=== PATIENT | male | born 1960 | race Caucasian/White ===

== ENCOUNTER 2024-05-09 06:22 | Day surgery (SDC) | payer OTHER, SELFPAY ==
[2024-05-09 10:06] LABS: Glucose - Point of Care 96 mg/dl (70-99)
== END 2024-05-09 11:30 | disposition home or self-care (01) ==
LOC: GI 06:22
PROVIDERS: ATTENDING PHYSICIAN Internal Medicine Gastroenterology
DX: Z12.11 Encounter for screening for malignant neoplasm of colon (principal); K64.8 Other hemorrhoids; D12.2 Benign neoplasm of ascending colon; K57.30 Diverticulosis of large intestine without perforation or abscess without bleeding; Z86.0100 Personal history of colon polyps, unspecified
CPT/HCPCS: 45385; 88305; 82962

== ENCOUNTER → 2025-02-06 07:44 | Outpatient (REF) | payer OTHER, SELFPAY | LOC: MRI 3T 07:44 | PROVIDERS: ATTENDING PHYSICIAN Specialist; FAMILY PHYSICIAN Physician Assistant Medical | DX: R97.20 Elevated prostate specific antigen [PSA] (principal) | CPT/HCPCS: 72197; A9575 ==

== ENCOUNTER 2025-03-05 06:36 | Day surgery (SDC) | payer OTHER, SELFPAY ==
[2025-03-05 08:21] VITALS: BP 136/87; BMI 25.9
[2025-03-05 08:31] LABS: Glucose - Point of Care 119 mg/dl (70-99)
[2025-03-05] MEDS: NEBCIN 480 MG/100 ML ENEMA 1 BOTTLE RECTAL (08:32)
[2025-03-05] MEDS: NORMOSOL-R/PLASMALYTE-A 1000 IV (08:32)
[2025-03-05 09:20] VITALS: BP 116/80
[2025-03-05 09:35] VITALS: BP 111/66
[2025-03-05 09:44] VITALS: BP 116/80
[2025-03-05 09:50] VITALS: BP 116/80
== END 2025-03-05 10:15 | disposition home or self-care (01) ==
LOC: SDS 06:36
PROVIDERS: ATTENDING PHYSICIAN Specialist
DX: N40.1 Benign prostatic hyperplasia with lower urinary tract symptoms (principal); R97.20 Elevated prostate specific antigen [PSA]; N41.1 Chronic prostatitis; N42.32 Atypical small acinar proliferation of prostate
CPT/HCPCS: 55700; 76998; 82962; 88305; 88344; 93005; J1580

== ENCOUNTER 2025-03-06 10:02 | Inpatient (IN) | payer OTHER, SELFPAY ==
[2025-03-05] VITALS (7 sets, daily range): BP systolic 105–120; BP diastolic 67–82; BMI 26.4
[2025-03-05 12:31] LABS: Hematocrit 37.2 % (39.0-52.0); Hemoglobin 12.7 g/dL (13.0-18.0); Mean Corp Hgb Conc. 34.1 g/dL (33.0-37.0); Mean Corpuscular Volume 85.3 fL (80.0-94.0); Nucleated Red Blood Cells % 0 % (-); Platelet Count 297 10^3/uL (130-400); Red Cell Dist. Width 12.9 % (11.5-14.5)
[2025-03-05 12:47] LABS: ALT (SGPT) 17 U/L (0-50); AST (SGOT) 15 U/L (17-59); Albumin 3.2 g/dl (3.5-5.0); Alkaline Phosphatase 50 U/L (38-126); Blood Urea Nitrogen 17 mg/dl (9-20); Calcium 8.3 mg/dl (8.4-10.2); Carbon Dioxide 28 mmol/L (22-30); Chloride 101 mmol/L (98-107); Estimated Creatinine Clearance 85 ml/min; Glucose 281 mg/dl (70-99); Potassium 4.3 mmol/L (3.5-5.1); Sodium 133 mmol/L (135-145); Total Protein 5.2 g/dl (6.3-8.2); eGFR > 60.00
--- NOTE | 2025-03-05 13:17 | ED.GENMED ---
History of Present Illness
General
Chief Complaint: Rectal Bleeding
Source: patient and spouse
Exam Limitations: none
Time Seen by Provider: 03/05/25 12:52
Nursing documentation reviewed up to this point in time: agreed with
History of Present Illness
History of Present Illness:
Note:
CHIEF COMPLAINT(S)
Passing out episodes and rectal bleeding.
HISTORY OF PRESENT ILLNESS
The patient is a 64-year-old male with a history of an enlarged prostate for 10-12 years, who presents with episodes of syncope and rectal bleeding. The patient reports that the episodes of bleeding began earlier today when he was at home. While
passing bowel movements, the patient noted a large amount of blood. He then experienced a syncopal episode, losing consciousness briefly while on the toilet. After regaining consciousness, the patient attempted to resume normal activities but noted
weakness and dizziness, prompting another trip to the bathroom where he had a second syncopal episode. There was no significant trauma reported, although the patient mentions his head did not sustain any noticeable injury during the falls.
The patient was previously diagnosed with benign prostatic hyperplasia and had a biopsy that came back benign. Recently, his PSA levels increased slightly, prompting further imaging which suggested an area of concern in the prostate, leading to a
second biopsy. The patient is currently being treated, and his prostate measures larger than average. Presently, the patient denies any pain or significant cramping before passing out, although he acknowledges feeling very weak.
After the syncopal episodes, the patient presented to the emergency department. Upon evaluation, the patients blood pressure and heart rate are within normal limits, and his hemoglobin level is stable. There is concern for further bleeding and the
potential for orthostatic hypotension or a vasovagal episode as the cause of syncope.
EXTERNAL RECORDS REVIEWED
The patient references prior biopsy results of his prostate, which were benign, and a recent MRI that indicated an area of interest prompting another biopsy.
CHRONIC MEDICAL CONDITIONS SIGNIFICANTLY AFFECTING CARE
The patient has a history of benign prostatic hyperplasia.
PLAN
The plan includes admitting the patient to the hospital for overnight observation to monitor for continued rectal bleeding and ensure stability. The patient will be evaluated by the urology and hospitalist teams to determine the cause of the
bleeding and syncope. Continuous monitoring of vital signs, including heart rate and blood pressure, is planned. The patient will also be observed for any cardiac rhythm abnormalities. Additional urologic consultation will be sought to address the
prostate concern and potential etiologies of the bleeding. Communication with the patients outpatient urologist has been initiated.
DIFFERENTIAL DIAGNOSIS
The Differential Diagnosis includes, in no particular order and is not limited to:
1. Gastrointestinal bleeding of unknown origin
2. Benign prostatic bleeding
3. Vasovagal syncope
4. Orthostatic hypotension
5. Anemia due to acute blood loss
6. Cardiac arrhythmia
7. Prostate cancer
8. Diverticulosis/diverticular bleeding
9. Upper gastrointestinal source of bleeding
10. Hemorrhoidal bleeding
PHYSICAL EXAM
The examination revealed an alert male in no acute distress. The skin was warm and dry. He had a normocephalic head with no trauma. There was neck suppleness, and the trachea was midline. The oral mucosa was moist. Cardiovascular assessment
indicated normal peripheral perfusion without edema present. Respiratory movements were non-labored. The abdomen was not distended. The back showed normal range of motion and normal alignment. Musculoskeletal assessment showed normal range of motion
and strength. Neurological exam indicated that the patient was alert and oriented to person, place, time, and situation without focal neurological deficits. Psychiatric evaluation demonstrated the patient was cooperative with an appropriate mood and
affect.
CARE-UPDATE
03/05/25 - 13:45
Patient stable and admitted for further monitoring. Urology has been informed of the situation. Uncertainty remains regarding the source of the rectal bleeding; however, it is more likely associated with the recent prostate biopsy rather than a
gastrointestinal issue.
EKG
My independent EKG interpretation is:
- Time of EKG: Not specified
- Rhythm: Normal sinus rhythm
- Heart Rate: 78 bpm
- [place]: Not specified
- ST Segment: No elevation or depression noted
- T Waves: Not specified
- Other Abnormalities: None mentioned
Disposition:
SUMMARY OF ENCOUNTER
The patient, a 64-year-old male with a history of benign prostatic hyperplasia, was seen in the emergency department due to episodes of syncope and significant rectal bleeding, which started earlier today during bowel movements. The patient
experienced two syncopal episodes, the first while on the toilet and the second when attempting to resume normal activities. On arrival, vitals were stable, and the patients hemoglobin level was stable. Given the recent prostate biopsy, there is
concern that the bleeding might be related, although gastrointestinal sources cannot be ruled out. The patient denies trauma, pain, or significant cramping prior to the syncopal events. The plan is to admit the patient for further monitoring and
evaluation.
ASSESSMENT
The differential diagnosis includes gastrointestinal bleeding of unknown origin, benign prostatic bleeding, vasovagal syncope, orthostatic hypotension, anemia due to acute blood loss, cardiac arrhythmia, prostate cancer, diverticulosis/diverticular
bleeding, upper gastrointestinal source of bleeding, and hemorrhoidal bleeding.
MANAGEMENT OF THE PATIENTS CARE WAS DISCUSSED WITH
Discussion with both the urology team, who were requested to evaluate the prostate-related concerns, and the hospitalist team, who will manage the progression of the patients care during admission.
PLAN
The plan involves admitting the patient to the hospital for overnight observation to monitor for continued rectal bleeding and to ensure stability. The urology and hospitalist teams will evaluate the patient to determine the cause of the bleeding
and syncope. Continuous monitoring of vital signs, including heart rate and blood pressure, will be conducted. Observations for any cardiac rhythm abnormalities will also continue. No immediate emergency interventions administrated are recorded at
this time. Communication with the patients outpatient urologist will be completed.
INDEPENDENT REVIEW OF LABS AND INTERPRETATION OF TESTS
- My independent EKG interpretation is: Normal sinus rhythm, heart rate of 78 bpm, no ST segment elevation or depression, and no other abnormalities noted.
MEDICAL DECISION MAKING
- Number and Complexity of Problems Addressed: Chronic conditions affecting care include benign prostatic hyperplasia and the recent prostate biopsy. The differential diagnosis remains broad, considering both prostate-related and gastrointestinal
sources for bleeding and syncope.
- Data:
Category 1: Integrated findings from the review of external records including prior biopsy results and recent MRI prompting a second biopsy.
Category 2: My independent interpretation of the EKG was normal and without abnormalities.
Category 3: Management of the patients situation discussed with both urology and hospitalist teams for a comprehensive plan.
- Risk: Given the episodes of syncope and rectal bleeding post-prostate biopsy, hospital admission was necessary for further monitoring and evaluation, indicating a moderate risk of complications from these symptoms.
DIAGNOSIS
- Syncope (ICD-10 R55)
- Rectal bleeding (ICD-10 K62.5)
- Benign prostatic hyperplasia (BPH) (ICD-10 N40.1)
Phy Exam
Physical Exam
Physical Exam:
.
Course
Orders/Labs/Results
Orders:
Orders
03/05/25 12:18
EKG [Electrocardiogram (*1)] Urgent
Reason for Study: Syncope
03/05/25 12:19
EKG- Treatment ONCE
03/05/25 12:23
Type+Screen Urgent
Complete Blood Count/With Diff Urgent
Comprehensive Metabolic Panel Urgent
Abnormal Lab Results
03/05/25
12:23
WBC 13.8 H 10^3/uL
(4.8-10.8)
RBC 4.36 L 10^6/uL
(4.70-6.10)
Hgb 12.7 L g/dL
(13.0-18.0)
Hct 37.2 L %
(39.0-52.0)
Abs Immat Gran (auto) 0.1 H 10^3/uL
(0-0.05)
Absolute Neuts (auto) 12.6 H 10^3/uL
(1.4-6.5)
Absolute Lymphs (auto) 0.8 L 10^3/uL
(1.2-3.4)
Immature Gran % 0.7 H %
(0-0.5)
Neutrophils % 91.7 H %
(42.2-75.2)
Lymphocytes % 5.7 L %
(20.5-51.1)
Monocytes % 1.5 L %
(1.7-9.3)
Sodium 133 L mmol/L
(135-145)
Glucose 281 H mg/dl
(70-99)
Calcium 8.3 L mg/dl
(8.4-10.2)
AST 15 L U/L
(17-59)
Total Protein 5.2 L g/dl
(6.3-8.2)
Albumin 3.2 L g/dl
(3.5-5.0)
03/05/25 12:23
03/05/25 12:23
Vital Signs
Initial and Last Documented VS:
Initial Vital Signs
Temp Pulse Pulse Ox
97.8 F 74 98
03/05/25 12:15 03/05/25 12:15 03/05/25 12:15
Last Documented Vital Signs
Temp Pulse Resp BP Pulse Ox
97.8 F 74 18 112/77 99
03/05/25 12:15 03/05/25 12:15 03/05/25 12:20 03/05/25 12:16 03/05/25 13:18
*Pulse Oximetry
SaO2: 99
Oxygen Mode of Delivery: Room air
Patient hypoxic: no
*Critical Care Note
Total Time (30-74mins, 75-104mins- exclusive of procedures): Not Applicable
ED Attending Note
-
Portions of this chart may have been created with voice recognition software.� Occasional wrong word or��sound alike� substitutions may have occurred due to the inherent limitations of voice recognition software.
Discharge Plan
Departure
Patient Disposition: Admit
Date of Disposition: 03/05/25
Time of Disposition: 13:18
Admit to: Telemetry
Presentation/result/management discussed w/ accepting MD/DO: Hospitalist
Patient with high blood pressure during this ER visit?: No
Condition: Fair
Discharge Problem:
Rectal bleeding, Syncope
Prescriptions:
No Action
metformin 500 mg Tablet
500 mg PO DAILY
losartan 25 mg Tablet
25 mg PO DAILY
finasteride 5 mg Tablet
5 mg PO DAILY
omeprazole 20 mg Tablet,Delayed Release (Dr/Ec)
20 mg PO DAILY
cefdinir 300 mg Capsule
300 mg PO BID
Rx Instructions:
for 3 days starting 03/04/25
metformin 500 mg Tablet
1,000 mg PO QPM
Referrals:
Rosetta Bhatia PA-C [Family Provider, Family Practice]
Interventions
Interventions:
*Risk Screen - Suicide Last Done: 03/05/25 12:17
*General Assessment Last Done: 03/05/25 12:19
*Neglect/Abuse Screening Last Done: 03/05/25 12:17
*ED- Fall Risk Assessment Last Done: 03/05/25 12:18
*ED COVID-19 Vaccine History Last Done: 03/05/25 12:18
*ED Influenza Vaccine History Last Done: 03/05/25 12:18
PJ-Umpmao-Knaeioqabx Assessment Last Done: 03/05/25 12:20
ED- Cardiac Assessment Last Done: 03/05/25 12:20
ED- Pulmonary Assessment Last Done: 03/05/25 12:20
Discharge Date and Time
Print Language: LUXEMBOURGER
--- NOTE | 2025-03-05 14:02 | HPS.HSE ---
Family Physician
-
Family Physician: Rosetta Bhatia
Chief Complaint
-
rectal bleeding
History of Present Illness
64-year-old male past medical history of BPH, chronic constipation, colonic polyps, hiatal hernia, obstructive sleep apnea, GERD, hypertension, diabetes, presenting with multiple episodes of loose rectal bleeding and 2 episodes of passing out today
after prostate biopsy in the morning. He does not take any blood thinners.
He underwent prostate biopsy by Dr. Mcdonough today for mass seen on prostate on prior MRI. He has not urinated after the procedure yet. He was noted to have blood pressure in the 80s afterwards with some dizziness but currently denies any symptoms.
No fever or abdominal pain.
He denies smoking or alcohol use.
Medical History
Past Medical History
Past Medical History: Reports Other (BPH, chronic constipation, colonic polyps, hiatal hernia, obstructive sleep apnea, GERD, hypertension, diabetes)
Past Surgical History: Reports None
Social History
Tobacco: Non-smoker
Alcohol: None
Drug: None
Family History
Family History: Not pertinent
Allergies / Home Medications
Allergies reflects when Allergies were last updated in [facility].
Home Medications with original date entered in [facility]
Allergy/Medication List:
Allergies
Allergy/AdvReac Type Severity Reaction Status Date / Time
No Known Allergies Allergy Verified 03/05/25 08:17
Home Medications
finasteride 5 mg tablet 5 mg PO DAILY Urinary Issue 03/02/25
losartan 25 mg tablet 25 mg PO DAILY Blood Pressure 03/02/25
metformin 500 mg tablet 500 mg PO DAILY Diabetes 03/02/25
omeprazole 20 mg tablet,delayed release 20 mg PO DAILY Gastrointestinal Issue 03/02/25
cefdinir 300 mg capsule 300 mg PO BID 03/05/25
metformin 500 mg tablet 1,000 mg PO QPM Diabetes 03/05/25
Review of Systems
-
History Source: Patient
A 12 point ROS was completed and negative except as noted: Yes
Constitutional: Reports No Symptoms
EENT: Reports No Symptoms
Respiratory: Reports No Symptoms
Cardiac: Reports No Symptoms
Abdomen/GI: Reports See HPI
: Reports See HPI
Musculoskeletal: Reports No Symptoms
Skin: Reports No Symptoms
Neurological: Reports No Symptoms
Endocrine: Reports No Symptoms
Hematologic/Lymphatic: Reports No Symptoms
Psych: Reports No Symptoms
Physical Exam
Vital Signs
Vital Signs
Temp Pulse Resp BP Pulse Ox
97.8 F 74 18 112/77 99
03/05/25 12:15 03/05/25 12:15 03/05/25 12:20 03/05/25 12:16 03/05/25 13:18
Physical Exam
General: Well Developed, Well Nourished and No Apparent Distress
HEENT: NormoCephalic, Moist mucous membranes and Atraumatic
Respiratory: Clear
Cardiac: S1/S2 and Regular Rhythm; No Murmur or Rub
GI: Soft, Non Tender, Non Distended and Normal Bowel Sounds; No Organomegaly
Rectal: Deferred by Provider
Musculoskeletal: No Clubbing, No Cyanosis and No Edema
Skin: No Rash
Neuro: Nonfocal/grossly intact
Laboratory Results
-
03/05/25 12:23
03/05/25 12:23
Laboratory Results
Total Bilirubin 0.7 mg/dl (0.2-1.3) 03/05/25 12:23
AST 15 U/L (17-59) L 03/05/25 12:23
ALT 17 U/L (0-50) 03/05/25 12:23
Alkaline Phosphatase 50 U/L (38-126) 03/05/25 12:23
Impression/Plan
-
IMPRESSION:
PLAN:
# Rectal bleeding after prostate biopsy today
# Syncopal episode secondary to blood loss
- Hemoglobin of 12.7
- Hold losartan for now
-Continue cefdinir that was started yesterday preprocedure
- Urology consulted
# Hyperglycemia
# Type 2 diabetes
- Blood sugar 280
- Hold metformin
- Insulin sliding scale
- Check A1c
BPH/prostate mass
- Continue finasteride
Chronic constipation
Colonic polyp
Hiatal hernia
Obstructive sleep apnea
GERD
- Continue omeprazole
Essential hypertension
Full code
DVT prophylaxis�SCDs
N.p.o.
--- NOTE | 2025-03-05 14:15 | CM ---
Chart reviewed and OBS form explained with patient and at ED bedside
Lives with in a split home no [address] but [address]
Independent with ADLS, ambulation . 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
DME none
PCP Rosetta Bhatia
RX plan yes
Ph[facility]acy [facility] in [place]
no hx of VN nor SNF
DCP is to go home and can provide transportation
CM will continue to follow up for dcp needs
--- NOTE | 2025-03-05 16:03 | CONS.URO ---
Consultation
-
Date/Time Consultation Performed: 03/05/25, 2:00PM
Performing Provider: Supa
Medical History
History of Present Illness
64-year-old male past medical history of BPH (110g), elevated PSA and PIRADS 5 lesion on MRI presenting with multiple episodes of loose rectal bleeding and 2 episodes of passing out today after prostate biopsy this morning. He does not take any
blood thinners.
He underwent prostate biopsy by Dr. Mcdonough today for mass seen on prostate on prior MRI. He was noted to have blood pressure in the 80s afterwards with some dizziness at home with 2 large bloody bowel movements but currently denies any symptoms.
No light-headedness or dizziness. No fever or abdominal pain.
In the ER, AFVSS. Hgb 12.7 from 13.9.
Allergies/Home Medications
Allergies
Allergy/AdvReac Type Severity Reaction Status Date / Time
No Known Allergies Allergy Verified 03/05/25 08:17
Home Medications
�Medication �Instructions �Recorded �Confirmed �Type
finasteride 5 mg tablet 5 mg PO DAILY Urinary Issue 03/02/25 03/05/25 History
losartan 25 mg tablet 25 mg PO DAILY Blood Pressure 03/02/25 03/05/25 History
metformin 500 mg tablet 500 mg PO DAILY Diabetes 03/02/25 03/05/25 History
omeprazole 20 mg tablet,delayed 20 mg PO DAILY Gastrointestinal 03/02/25 03/05/25 History
release Issue
cefdinir 300 mg capsule 300 mg PO BID 03/05/25 03/05/25 History
metformin 500 mg tablet 1,000 mg PO QPM Diabetes 03/05/25 03/05/25 History
Physical Exam
Vital Signs
Vital Signs
Temp Pulse Resp BP Pulse Ox
98 F 87 18 120/78 99
03/05/25 15:06 03/05/25 15:06 03/05/25 15:06 03/05/25 15:06 03/05/25 15:06
Lab / Testing Results
Laboratory Results
03/05/25 12:23
Physical Exam
General: Well Developed, Well Nourished and No Apparent Distress
HEENT: Normocephalic
GI: Soft and Non Tender
Skin: Warm and Dry
Neuro: Awake and Alert
Assessment / Plan
-
64-year-old male past medical history of BPH (110g), elevated PSA and PIRADS 5 lesion on MRI presenting with multiple episodes of loose rectal bleeding and 2 episodes of passing out today after prostate biopsy this morning. He does not take any
blood thinners.
Plan:
- Admit for obs
- Trend Hgb
- Monitor vital signs and subsequent BMs
- Pt needs to urinate post-procedure - please bladder scan if pt has not voided
- Conservative management
- Urology to follow
[2025-03-05 16:19] LABS: Hematocrit 38.8 % (39.0-52.0); Hemoglobin 13.5 g/dL (13.0-18.0)
--- NOTE | 2025-03-05 16:30 | PTCARENOTE ---
Pt admitted into room 405-1, ambulated from wheelchair to bathroom to bed with [id number]. VSS. Tele showing NSR. Pt AAOx3, denies pain. Call gabriel within reach. Oriented patient to room.
[2025-03-05 18:06] LABS: Glucose - Point of Care 149 mg/dl (70-99)
--- NOTE | 2025-03-05 18:41 | PTCARENOTE ---
Upon ambulation to bathroom HR increased to 140's. Pt denies dizziness, or palpitations. BP 105/76 upon return to bed and HR quickly returned to 80-90's NSR. Dr. Elder made aware. No BM's or further bleeding since arrival to floor.
[2025-03-05] MEDS: OMNICEF 300 MG PO (20:07)
--- NOTE | 2025-03-05 21:16 | W.PN.UPDATE ---
Addendum entered and electronically signed by RICHMOND Flores 03/06/25 07:06:
Failed straight cath attempt x1. Patient voided 200 ml, PVR 234 ml.
Urologist made aware.
Original Note:
Update Note
Progress Note Update
RN reports patient HR 120's -140's when patient walks to the BR, HR 90's when in bed resting. Patient seen and evaluated. states he feels his HR went up while he was urinating. He feels 'burning' at the midchest at that time. Timothy chest pain or
shortness of breath. Denies dizziness lightheaded. lungs clear, RRR, +BS. VS Stable.
Hx of GERD, Family Hx of heart attack
EKG, Troponin, Protonix 40mg IVx1
EKG results noted. Admitting made aware.
Also noted PVR of 380 after voiding 200 CC. clear urine.
will order bladder scan. Patient refusing to be straight cath at this time.
[2025-03-05 22:36] LABS: Hematocrit 35.4 % (39.0-52.0); Hemoglobin 12.1 g/dL (13.0-18.0)
[2025-03-05] MEDS: NSS (PRESERVATIVE FREE) 10 ML IV (22:46)
[2025-03-05] MEDS: PROTONIX IV 40 MG IV (22:47)
[2025-03-05 23:14] LABS: Troponin I < 0.012 ng/ml
[2025-03-05 23:57] LABS: Glucose - Point of Care 124 mg/dl (70-99)
[2025-03-06 03:23] VITALS: BP 135/77
--- NOTE | 2025-03-06 05:27 | PTCARENOTE ---
Pt aaox3 able to make his needs known.Denies pain. Pt sinus tachy in 140's when trying to void or ambulating in BR & back to 90 when back in bed,pt stated he felt it,denies chest pain.[employer] par[employer] chaperone made aware of it & seen pt,EKG done on pt & troponin
sent, hgb was checked again.Pt asymptomatic otherwise.SUPPLY ROOM CLERK was made aware of pt bladder scan results.Plan of care continued as ordered.
[2025-03-06 06:36] LABS: Glucose - Point of Care 122 mg/dl (70-99)
[2025-03-06 07:00] VITALS: BP 134/77
[2025-03-06 07:33] LABS: Hematocrit 34.9 % (39.0-52.0); Hemoglobin 11.6 g/dL (13.0-18.0); Mean Corp Hgb Conc. 33.2 g/dL (33.0-37.0); Mean Corpuscular Volume 86.4 fL (80.0-94.0); Nucleated Red Blood Cells % 0 % (-); Platelet Count 265 10^3/uL (130-400); Red Cell Dist. Width 12.8 % (11.5-14.5)
[2025-03-06 07:54] LABS: ALT (SGPT) 16 U/L (0-50); AST (SGOT) 16 U/L (17-59); Albumin 3.4 g/dl (3.5-5.0); Alkaline Phosphatase 47 U/L (38-126); Blood Urea Nitrogen 11 mg/dl (9-20); Calcium 8.6 mg/dl (8.4-10.2); Carbon Dioxide 29 mmol/L (22-30); Chloride 102 mmol/L (98-107); Estimated Creatinine Clearance 85 ml/min; Glucose 133 mg/dl (70-99); Potassium 3.9 mmol/L (3.5-5.1); Sodium 135 mmol/L (135-145); Total Protein 5.3 g/dl (6.3-8.2); eGFR > 60.00
--- NOTE | 2025-03-06 08:10 | W.PN.HOSP.TC ---
Today's Communication/Plan
-
No rectal or urinary bleeding since admission. Will continue to monitor.
Blood pressure increasing and stable in 130s.
Urology started prophylactic levofloxacin 500 mg p.o. daily. Changed level of care from observation to inpatient.
Assessment / Plan
Assessment / Plan
IMPRESSION:
Mr. Mian Judd is a 64-year-old male with PMH notable for BPH, chronic constipation, colonic polyps, hiatal hernia, obstructive sleep apnea, GERD, hypertension, diabetes, presenting with multiple episodes of loose rectal bleeding and 2 episodes
of passing out today after prostate biopsy in the morning. He does not take any blood thinners.
He underwent prostate biopsy by Dr. Mcdonough today for mass seen on prostate on prior MRI. He has not urinated after the procedure yet. He was noted to have blood pressure in the 80s afterwards with some dizziness but currently denies any symptoms.
No fever or abdominal pain.
He denies smoking or alcohol use.
PLAN:
# Rectal bleeding after prostate biopsy
# Syncopal episode secondary to blood loss
# Essential hypertension at baseline
No double or urinary bleeding since admission
- Hemoglobin of 12.7
- Hold losartan 25 mg p.o. daily due to softer blood pressures. Anticipating resuming soon since blood pressures have increased to 130s
- Continue cefdinir 30 mg p.o. twice daily that was started preprocedure (1 day prior to admission) prophylactically, since the patient developed an infection after a prostate biopsy 12 years ago
- Urology consulted: Started levofloxacin 500 mg p.o. daily 03/06/25�
# Hyperglycemia
# Type 2 diabetes
A1c 5.8% prediabetes
- Holding metformin 500 milligram a.m. and 1000 mg p.m. p.o. daily in case imaging is desired. Anticipate resuming soon
- Insulin sliding scale
BPH/prostate mass
- Continue finasteride 5 mg p.o. daily
After an elevated PVR, straight cath was unsuccessful
- Patient reported that a urologist recommended refraining from Alvares catheter or straight catheter for urinary retention
� Patient reports that his prostate is 100 g (whereas normal prostates are 30 g). He is used to urinating every 2 hours at night.
Chronic constipation
�Denies constipation recently. Holding off on providing a bowel regimen to promote hemostasis at the prostate biopsy site
Colonic polyp
Hiatal hernia
Obstructive sleep apnea
� CPAP offered and patient declined, feeling like he did not need it for the anticipated few-nights stay
GERD
- Pantoprazole 40 mg p.o. daily (at home, on omeprazole 20 mg p.o. daily)
Full code
DVT prophylaxis�SCDs
N.p.o.
Anticipated Discharge: 24 - 48 hours
Subjective/Interval History
-
Date of Service: March 06, 2025
Overnight at 9 PM:
RN reports patient HR 120's -140's when patient walks to the BR, HR 90's when in bed resting. Patient seen and evaluated. states he feels his HR went up while he was urinating. He feels 'burning' at the midchest at that time. Timothy chest pain or
shortness of breath. Denies dizziness lightheaded. lungs clear, RRR, +BS. VS Stable.
Hx of GERD, Family Hx of heart attack
EKG, Troponin, Protonix 40mg IVx1
EKG results noted. Admitting made aware.
Also noted PVR of 380 after voiding 200 CC. clear urine.
will order bladder scan. Patient refusing to be straight cath at this time.
This morning at 7 AM:
Failed straight cath attempt x1. Patient voided 200 ml, PVR 234 ml.
Urologist made aware.
Troponin undetectable. EKG with normal sinus rhythm.
This morning, patient was comfortable and had no complaints. He has had no further bowel movements. Since admission, he has noted no blood in his urine, he has urinated multiple times. He denies feeling lightheaded.
He clarified the mid chest pain he felt later this morning had resolved and did not feel like retrosternal chest pain.
Objective Data
-
Labs:
Laboratory Results
03/05/25 03/06/25
22:30 07:14
WBC 8.8
Hgb 12.1 L 11.6 L
Hct 35.4 L 34.9 L
Plt Count 265
Sodium 135
Potassium 3.9
Chloride 102
Carbon Dioxide 29
BUN 11
Creatinine 0.8
Glucose 133 H
Calcium 8.6
Total Bilirubin 0.9
AST 16 L
ALT 16
Alkaline Phosphatase 47
Vital Signs:
Vital Signs
Temp Pulse Resp BP Pulse Ox
98.4 F 89 12 134/77 97
03/06/25 07:00 03/06/25 07:00 03/06/25 07:00 03/06/25 07:00 03/06/25 07:00
I&O
03/05/25 03/06/25 03/07/25
06:59 06:59 06:59
Intake Total 800 / 800
Output Total 500 / 500
Balance 300 / 300
Review of Systems
-
History Source: Patient
All other systems: Reviewed and negative
Physical Exam
-
General: Well Developed, Well Nourished, No Apparent Distress, Comfortable and Conversant
HEENT: Normocephalic, Atraumatic, Moist Mucous Membranes, Anicteric, No Ptosis, Nose Appears Normal and Ears Appear Normal
Respiratory: Clear to Auscultation
Cardiac: Regular Rhythm and S1/S2
GI: Soft, Nontender, Nondistended and Normal Bowel Sounds
Musculoskeletal: No Clubbing, No Cyanosis and No Edema
Skin: Warm, Dry and Normal Turgor
Neuro: Awake and Alert
Psych: Calm
[2025-03-06 09:07] LABS: Glucose - Point of Care 142 mg/dl (70-99)
[2025-03-06] MEDS: OMNICEF 300 MG PO ×2 (09:20→20:48)
[2025-03-06] MEDS: LEVAQUIN 500 MG PO (09:20)
[2025-03-06] MEDS: PROSCAR 5 MG PO (09:21)
[2025-03-06] MEDS: PROTONIX 40 MG PO (09:21)
[2025-03-06 09:52] LABS: Glycohemoglobin (HgbA1c) 5.8 % (4.0-5.9)
[2025-03-06 10:00] LABS: Hepatitis C Antibody Negative (Negative)
--- NOTE | 2025-03-06 10:03 | W.PN.UPDATE ---
Update Note
Progress Note Update
I saw and evaluated the patient. I reviewed the resident�s note and agree with findings and plan as documented in the resident�s note.
No new complaints.
Gen: NAD, AAOx3.
Eyes: EOMI, PERRLA, no scleral icterus.
Neck: supple.
CV: RRR, +S1/S2, no m/r/g.
Resp: CTAB, no rales, wheezes, or rhonchi.
Abd: +BS, soft, NT, ND
Skin: No rashes.
Neuro: CN 2-12 intact, non-focal.
Psych: Normal mood and affect.
Acute blood loss anemia due to rectal bleeding:
-started after prostate Bx (prostate mass) on day of admission
-had a syncopal episode due to acute blood loss
-trend Hb
-case discussed with Dr. Mcdonough. No indication for red catheter at this time. Cont abx as per Dr. Mcdonough for prostatitis prophylaxis. I personally clarified with Dr. Mcdonough that cefdinir alone is fine (he had ordered Levaquin but did not
realize the patient was already on cefdinir). Dr. Mcdonough would like to watch the pt in the hospital for one more day.
Other problems:
DM2: a1c 5.8%, SSI/accuchecks
h/o BPH: cont finasteride
Chronic constipation
Colonic polyp
Hiatal hernia
SALIMA
GERD: cont PPI
FULL/SCDs
[2025-03-06 11:00] VITALS: BP 138/72
--- NOTE | 2025-03-06 11:39 | CM ---
Reviewed Chart. Met with pt and at bedside. Planning for DC tomorrow. Pt informed that he is now on inpatient status; was admitted on OBS.
Plan: home with no needs
[2025-03-06 11:49] LABS: Glucose - Point of Care 234 mg/dl (70-99)
[2025-03-06] MEDS: NOVOLOG FLEXPEN-LOW RESISTANCE 2 UNITS SC (12:15)
--- NOTE | 2025-03-06 12:35 | W.PN.URO.CBU ---
Today's Communication / Plan
-
no changes
Assessment / Plan
-
pt had multiple reasons including anesthesia rectal and urinary bleeding vasov aga rxn and dehydration leading to yesterdays event . Today c/o dysuria and mild frequency of urine 200cc pvr but difficult red .... hgb 13 to 11.6 no
major ongoing active bleeding will observe a pt at risk for uti , and retention and observeas hgb still slowly drifting down will consider red but this also carries possible uti risk. plan cefdinir serial hgb observe for sepsis and
retention
Diagnosis
-
Date of Service: March 06, 2025
-
Patient Diagnosis:
post op transrectal bx prostate with post op syncope, rectal bleeding partial retention
Post Op Day:
Subjective
-
dysuria otherwise feels basline
Objective
-
Vital Signs
Temp Pulse Resp BP Pulse Ox
97.9 F 97 12 138/72 98
03/06/25 11:00 03/06/25 11:00 03/06/25 11:00 03/06/25 11:00 03/06/25 11:00
Intake and Output
03/05/25 03/06/25 03/07/25
06:59 06:59 06:59
Intake Total 800 / 800
Output Total 500 / 500
Balance 300 / 300
Intake:
Oral fluids 800 / 800
Output:
Urine, Voided 500 / 500
Straight cath output 0 / 0
Other:
Number of approximated MODERATE 2
amounts of urine
Laboratory Results
03/06/25 07:14
03/06/25 07:14
Review of Systems
-
Abdomen/GI: Other (blod diinshing from rctum)
: Frequency and Difficulty Voiding
Physical Exam
-
General - well developed, well nourished, no acute distress
Chest - clear bilaterally
Abdomen - soft, non-tender, positive bowel sounds, no CVAT, no incisional pain or distention
Genitalia - normal
Rectal - normal
Skin - warm & dry with no rash
Neuro - AOx3, no motor deficits
Extremities - no clubbing, no cyanosis, no edema
Incision - clean, dry
Dressing - clean, dry, intact
Counseling
-
no changes
Care Review
Data Reviewed
Discussed with: Nursing and Family
[2025-03-06 15:00] VITALS: BP 122/76
[2025-03-06 16:32] LABS: Glucose - Point of Care 113 mg/dl (70-99)
[2025-03-06] MEDS: NOVOLOG FLEXPEN-LOW RESISTANCE SC (16:43)
[2025-03-06 19:41] VITALS: BP 136/77
[2025-03-06 21:07] LABS: Glucose - Point of Care 216 mg/dl (70-99)
[2025-03-06 23:39] VITALS: BP 138/83
[2025-03-07 03:41] VITALS: BP 115/81
[2025-03-07 06:30] LABS: Hematocrit 33.5 % (39.0-52.0); Hemoglobin 11.2 g/dL (13.0-18.0); Mean Corp Hgb Conc. 33.4 g/dL (33.0-37.0); Mean Corpuscular Volume 89.1 fL (80.0-94.0); Platelet Count 245 10^3/uL (130-400); Red Cell Dist. Width 12.9 % (11.5-14.5)
[2025-03-07 06:57] LABS: Glucose - Point of Care 147 mg/dl (70-99)
[2025-03-07 07:00] VITALS: BP 117/71
[2025-03-07 07:02] LABS: Blood Urea Nitrogen 13 mg/dl (9-20); Calcium 8.5 mg/dl (8.4-10.2); Carbon Dioxide 30 mmol/L (22-30); Chloride 103 mmol/L (98-107); Estimated Creatinine Clearance 75 ml/min; Glucose 125 mg/dl (70-99); Potassium 4.2 mmol/L (3.5-5.1); Sodium 137 mmol/L (135-145); eGFR > 60.00
[2025-03-07] MEDS: NOVOLOG FLEXPEN-LOW RESISTANCE SC ×2 (08:27→11:47)
--- NOTE | 2025-03-07 08:37 | W.PN.HOSP.TC ---
Today's Communication/Plan
-
Discharge today with directions to complete previously prescribed prostatitis prophylaxis antibiotic course by patient urologist.
Provided mag citrate for constipation.
Assessment / Plan
Assessment / Plan
IMPRESSION:
Mr. Mian Judd is a 64-year-old male with PMH notable for BPH, chronic constipation, colonic polyps, hiatal hernia, obstructive sleep apnea, GERD, hypertension, diabetes, presenting with multiple episodes of loose rectal bleeding and 2 episodes
of passing out today after prostate biopsy in the morning. He does not take any blood thinners.
He underwent prostate biopsy by Dr. Mcdonough on the day of presentation for mass seen on prostate on prior MRI. He has not urinated after the procedure yet. He was noted to have blood pressure in the 80s afterwards with some dizziness but
currently denies any symptoms.
PLAN:
# Rectal bleeding after prostate biopsy
# Syncopal episode secondary to blood loss
# Essential hypertension at baseline
No rectal or urinary bleeding since admission. Hemoglobin stable 11-12
- Hold losartan 25 mg p.o. daily due to softer blood pressures. Anticipating discharging on losartan since blood pressures have been stable 110s to 130s
- Continue cefdinir 30 mg p.o. twice daily that was started preprocedure (1 day prior to admission) prophylactically, since the patient developed an infection after a prostate biopsy 12 years ago
- Urology consulted: cefdinir while hospitalized. Advised patient to finish remaining 2 tablets of cefdinir at home after discharge
# Hyperglycemia
# Type 2 diabetes
A1c 5.8% prediabetes
- Resumed metformin 500 milligram a.m. and 1000 mg p.m. p.o. daily
- Insulin sliding scale
BPH/prostate mass
- Continue finasteride 5 mg p.o. daily
After an elevated PVR, straight cath was unsuccessful
- Patient reported that a urologist recommended refraining from Alvares catheter or straight catheter for urinary retention
� Patient reports that his prostate is 100 g (whereas normal prostates are 30 g). He is used to urinating every 2 hours at night.
Chronic constipation
�Denies constipation recently. Holding off on providing a bowel regimen to promote hemostasis at the prostate biopsy site
Colonic polyp
Hiatal hernia
Obstructive sleep apnea
� CPAP offered and patient declined, feeling like he did not need it for the anticipated few-nights stay
GERD
- Pantoprazole 40 mg p.o. daily (at home, on omeprazole 20 mg p.o. daily)
Full code
DVT prophylaxis�SCDs
N.p.o.
Anticipated Discharge: Today
Subjective/Interval History
-
Date of Service: March 07, 2025
No acute events overnight. This morning, patient was found walking around the unit without assistance comfortably. Patient denied having bowel movement yet. He denies feeling lightheaded. He only experienced tachycardia 1 more time while
urinating, but not other times while urinating.
Objective Data
-
Labs:
Laboratory Results
03/07/25
05:38
WBC 6.2
Hgb 11.2 L
Hct 33.5 L
Plt Count 245
Sodium 137
Potassium 4.2
Chloride 103
Carbon Dioxide 30
BUN 13
Creatinine 0.9
Glucose 125 H
Calcium 8.5
Vital Signs:
Vital Signs
Temp Pulse Resp BP Pulse Ox
97.8 F 78 12 117/71 97
03/07/25 07:00 03/07/25 07:00 03/07/25 07:00 03/07/25 07:00 03/07/25 07:00
I&O
03/06/25 03/07/25 03/08/25
06:59 06:59 06:59
Intake Total 800 / 800 840 / 840
Output Total 500 / 500 250 / 250
Balance 300 / 300 590 / 590
Review of Systems
-
History Source: Patient
All other systems: Reviewed and negative
Physical Exam
-
General: Well Developed, Well Nourished, No Apparent Distress, Comfortable and Conversant
HEENT: Normocephalic, Atraumatic, Anicteric, No Ptosis, Nose Appears Normal and Ears Appear Normal
Respiratory: Clear to Auscultation
Cardiac: Regular Rhythm and S1/S2
GI: Soft, Nontender, Nondistended and Normal Bowel Sounds
Musculoskeletal: No Clubbing, No Cyanosis and No Edema
Skin: Warm and Dry
Neuro: Awake and Alert
Psych: Calm
[2025-03-07] MEDS: GLUCOPHAGE 500 MG PO (09:03)
[2025-03-07] MEDS: FLUSH (NSS) 1 FLUSH IV (09:04)
[2025-03-07] MEDS: OMNICEF 300 MG PO (09:04)
[2025-03-07] MEDS: PROSCAR 5 MG PO (09:04)
[2025-03-07] MEDS: PROTONIX 40 MG PO (09:04)
--- NOTE | 2025-03-07 10:30 | PTCARENOTE ---
Noted this am when pt up to the bathroom that his HR was up to 120s-130s, asymptomatic. Once at rest, HR 70s-80s, Sinus Rhythm. Pt states that he feels like he strains when he urinates, slight dysuria. Pt states that he feels like he voids
adequately. Will check bladder scan PVR with next void. Dr. Mjeia aware of above.
--- NOTE | 2025-03-07 10:33 | W.PN.UPDATE ---
Update Note
Progress Note Update
I saw and evaluated the patient. I reviewed the resident�s note and agree with findings and plan as documented in the resident�s note.
No new complaints. Denies blood per rectum since I saw the patient yesterday.
Gen: NAD, AAOx3.
Eyes: EOMI, PERRLA, no scleral icterus.
Neck: supple.
CV: Remains RRR, +S1/S2, no m/r/g.
Resp: Remain CTAB, no rales, wheezes, or rhonchi.
Abd: Remains +BS, soft, NT, ND
Skin: No rashes.
Neuro: CN 2-12 intact, non-focal.
Psych: Normal mood and affect.
Acute blood loss anemia due to rectal bleeding:
-started after prostate Bx (prostate mass) on day of admission
-had a syncopal episode due to acute blood loss
-Tele with SR/ST (read by me)
-Hb stable
-d/c on abx (pt has at home) as per discussion with Uro
Other problems:
DM2: a1c 5.8%, SSI/accuchecks
h/o BPH: cont finasteride
Chronic constipation, mag citrate ordered on day of d/c
Colonic polyp
Hiatal hernia
SALIMA
GERD: cont PPI
FULL/SCDs
Medically cleared for d/c.
Total time spent on d/c = 31 min. This included today's physical exam, progress note, review of laboratory and diagnostic data, preparation of discharge documents and prescriptions, and discussions about the pt's hospital course and discharge plan
with the patient and other medical surgery nurse involved in the patient's care.
[2025-03-07 11:00] VITALS: BP 107/71
[2025-03-07 11:45] LABS: Glucose - Point of Care 92 mg/dl (70-99)
--- NOTE | 2025-03-07 12:18 | CM ---
Chart reviewed, patient switched to inpatient, patient made aware,plan is to home today, no needs.
Plan; Home no needs.
[2025-03-07] MEDS: CITROMA 300 ML PO (12:25)
--- NOTE | 2025-03-07 12:47 | W.PN.URO.CBU ---
Today's Communication / Plan
-
Would like pt to attempt to have BM prior to dc
No straining for BMs - will provide stool softeners to avoid straining and re-initiation of rectal bleeding due to Valsalva
Once pt has BM with no signs of significant rectal bleeding, should be stable for dc home
Assessment / Plan
-
64M with elevated PSA/BPH s/p transrectal prostaet biopsy readmitted for rectal bleeding and syncope
Hgb stabilized. No evidence of sepsis
Diagnosis
-
Date of Service: March 07, 2025
-
Patient Diagnosis:
Post Op Day:
Patient Diagnosis:
post op transrectal bx prostate with post op syncope, rectal bleeding partial retention
Post Op Day:
Subjective
-
Doing better today. Tolerating food
Has not had BM yet since being admitted
Denies fevers/chills, nausea/vomiting, pain
Ambulating without dizziness
AFVSS, Hgb stabilized
Objective
-
Vital Signs
Temp Pulse Resp BP Pulse Ox
97.8 F 76 16 107/71 97
03/07/25 11:00 03/07/25 11:00 03/07/25 11:00 03/07/25 11:00 03/07/25 11:00
Intake and Output
03/06/25 03/07/25 03/08/25
06:59 06:59 06:59
Intake Total 800 / 800 840 / 840 660 / 660
Output Total 500 / 500 250 / 250
Balance 300 / 300 590 / 590 660 / 660
Intake:
Oral fluids 800 / 800 840 / 840 660 / 660
Output:
Urine, Voided 500 / 500 250 / 250
Straight cath output 0 / 0
Other:
Number of approximated MODERATE 2
amounts of urine
Number of approximated LARGE 1
amounts of urine
Laboratory Results
03/07/25 05:38
03/07/25 05:38
Physical Exam
-
General - well developed, well nourished, no acute distress
Chest - clear bilaterally
Abdomen - soft, non-tender
Skin - warm & dry with no rash
Neuro - AOx3, no motor deficits
Extremities - no clubbing, no cyanosis, no edema
--- NOTE | 2025-03-07 12:59 | W.DCSUMMARY ---
Discharge Summary
Discharge Data
Date of Admission: 03/06/25
Date of Discharge: 03/07/25
-
Pending Results: No
Hospital Course
Discharging Physician : Dr. Mejia and Dr. Henriquez
Disposition : Home
Primary care physician : Rosetta Bhatia
Principal Discharge diagnosis : Bleeding status post prostate biopsy
Chronic Discharge diagnosis : Diabetes, hypertension, BPH, constipation, hiatal hernia, SALIMA
Hospital Course :
Mr. Mian Judd is a 64-year-old male with PMH notable for BPH, chronic constipation, colonic polyps, hiatal hernia, obstructive sleep apnea, GERD, hypertension, diabetes, presenting with multiple episodes of loose stool with rectal bleeding and
2 syncopal episodes after prostate biopsy in the morning. He does not take any blood thinners. He underwent prostate biopsy by Dr. Mcdonough on the day of presentation for a mass mass seen on prostate on prior MRI. He was noted to have blood
pressure in the 80s afterwards with some dizziness but has not felt lightheaded or presyncopal since admission.
Problem 1: Rectal bleeding and syncope after prostate biopsy
No further rectal bleeding or bleeding from other sites since admission. Hemoglobin remained stable at 11-13. He has chronic constipation and did not have a bowel movement during his 2 night hospital stay. He was provided magnesium citrate at
discharge. He was advised to not strain when having bowel movements, because straining can disrupt the hemostasis at the prostate biopsy.
His losartan 25 mg p.o. daily on admission, but resumed at discharge since his blood pressures increased and have been stable in 110s to 130s.
His cefdinir 300 mg p.o. twice daily was continued. It was ordered by his urologist for his prostate biopsy to prevent prostatitis, which he developed after his last biopsy 12 years ago. He was directed to finish his cefdinir prescription at home
(2 more tablets).
Problem 2: Hyperglycemia
A1c 5 point percent. His metformin 500 milligram a.m. and 1000 mg p.m. p.o. daily were held for 1 day, but resumed since no imaging with IV contrast no other nephrotoxic agents were anticipated.
Important imaging findings : None
Procedure findings : None
Discharge Plan
-
Patient Disposition: Home (Routine Discharge)
Discharge Diagnosis/Procedures: Rectal bleeding after prostate biopsy
Hypertension
BPH/urinary retention
Constipation
Diabetes
Condition: Good
Diet: Low Cholesterol, Low Sodium and Diabetic, Carb Controlled
Activity: As tolerated
Driving Restrictions: As prior to admission
Bathing Restrictions: None
Referrals:
Rosetta Bhatia PA-C [Family Provider, Family Practice] - in less than 1 week
Yohana Cowart MD [Active, Urology] - in one to two weeks
Referral Note: Prostate biopsy results, rectal bleeding from prostate biopsy
Additional Discharge Medication Instructions: Urology recommends that you finish your remaining cefdinir antibiotic tablets after discharge.
Prescriptions:
Continued
metformin 500 mg Tablet
500 mg PO DAILY
losartan 25 mg Tablet
25 mg PO DAILY
finasteride 5 mg Tablet
5 mg PO DAILY
omeprazole 20 mg Tablet,Delayed Release (Dr/Ec)
20 mg PO DAILY
cefdinir 300 mg Capsule
300 mg PO BID
Rx Instructions:
for 3 days starting 03/04/25
metformin 500 mg Tablet
1,000 mg PO QPM
Discharge Orders:
Discharge Patient (As Directed); Ordered 03/07/25
Ordered By: Madhav Mejia
Discharge Date and Time
Print Language: SYRIAC
[2025-03-07 14:23] VITALS: BP 128/77
== END 2025-03-07 15:04 | disposition home or self-care (01) | DRG 379 ==
LOC: 4 EAST ACU 10:02
PROVIDERS: Emergency Medicine; Nurse Practitioner Gerontology; ADMITTING PHYSICIAN Hospitalist; ATTENDING PHYSICIAN Internal Medicine; CONSULT PHYSICIAN Student in an Organized Health Care Education/Training Program; EMERGENCY PHYSICIAN Emergency Medicine; FAMILY PHYSICIAN Physician Assistant Medical
DX: K62.5 Hemorrhage of anus and rectum (principal); E11.65 Type 2 diabetes mellitus with hyperglycemia; I10 Essential (primary) hypertension; K59.09 Other constipation; K44.9 Diaphragmatic hernia without obstruction or gangrene; Y83.8 Other surgical procedures as the cause of abnormal reaction of the patient, or of later complication, without mention of misadventure at the time of the procedure; G47.33 Obstructive sleep apnea (adult) (pediatric); K21.9 Gastro-esophageal reflux disease without esophagitis; Z86.0100 Personal history of colon polyps, unspecified; N40.1 Benign prostatic hyperplasia with lower urinary tract symptoms; R33.8 Other retention of urine; Z79.84 Long term (current) use of oral hypoglycemic drugs; Z79.899 Other long term (current) drug therapy
CPT/HCPCS: 80048; 80053; 82962; 83036; 84484; 85014; 85018; 85025; 85027; 86803; 86850; 86900; 86901; 93005; 99284